=== PATIENT | male | born 1980 | race Caucasian/White ===

== ENCOUNTER 2017-04-13 09:04 | Emergency (ER) | payer MEDICAID | END 2017-04-13 09:50 | disposition left against medical advice (07) | LOC: JP.ED 09:04 | DX: Z53.21 Procedure and treatment not carried out due to patient leaving prior to being seen by health care provider (principal) ==

== ENCOUNTER 2018-04-21 14:29 | Emergency (ER) | payer SELFPAY ==
--- NOTE | 2018-04-21 15:30 | EDM.PDOC ---
ED HPI GENERAL MEDICAL PROBLEM - General Chief Complaint: Cardiovascular Problem Stated Complaint: HEART ISSUES Time Seen by Provider: 04/21/18 15:00 Source of Information: Reports: Patient History Limitations: Reports: No Limitations - History of Present Illness INITIAL COMMENTS - FREE TEXT/NARRATIVE: 37-year-old male who is been feeling occasional ectopic beats over the last several days, and it finally made him nervous enough to come in and get it checked. Causes him to be anxious but it's not causing pain, he is not short of breath or ill. They never last more than a second or 2. He is otherwise healthy. Onset: Unknown/Unsure Worsens with: Reports: None Associated Symptoms: Reports: No Other Symptoms - Related Data Allergies Allergy/AdvReac Type Severity Reaction Status Date / Time Penicillins Allergy Swelling Verified 04/21/18 14:51 Home Meds: Home Meds NK [No Known Home Meds] 01/29/18 [History] Past Medical History HEENT History: Reports: Impaired Vision Genitourinary History: Reports: Other (See Below) Other Genitourinary History: prostatitis 2 weeks ago - Infectious Disease History Infectious Disease History: Reports: Chicken Pox Social & Family History - Tobacco Use Smoking Status *Q: Heavy Tobacco Smoker Years of Tobacco use: 17 Packs/Tins Daily: 1 - Caffeine Use Caffeine Use: Reports: Coffee - Recreational Drug Use Recreational Drug Use: No ED ROS GENERAL - Review of Systems Review Of Systems: See Below Constitutional: Denies: Fever, Chills HEENT: Reports: No Symptoms Respiratory: Denies: Shortness of Breath Cardiovascular: Reports: Palpitations. Denies: Chest Pain Endocrine: Denies: Fatigue GI/Abdominal: Denies: Abdominal Pain, Nausea, Vomiting : Reports: No Symptoms Musculoskeletal: Reports: No Symptoms Skin: Reports: No Symptoms ED EXAM, GENERAL - Physical Exam Exam: See Below Exam Limited By: No Limitations General Appearance: Alert, No Apparent Distress Respiratory/Chest: No Respiratory Distress, Lungs Clear Cardiovascular: Regular Rate, Rhythm. No: Extra Beats GI/Abdominal: Non-Tender Extremities: No: Pedal Edema Neurological: Alert, Oriented Psychiatric: Normal Affect, Normal Mood Course - Vital Signs Last Recorded V/S: Last Vital Signs Temp 97.8 F 04/21/18 14:48 Pulse 102 H 04/21/18 14:48 Resp 18 04/21/18 14:48 BP 122/80 02/27/19 14:48 Pulse Ox 99 04/21/18 14:48 - Re-Assessments/Exams Free Text/Narrative Re-Assessment/Exam: 04/21/18 15:28 Patient was placed on a patient monitor and observed for over an hour. He was a normal sinus rhythm throughout and developed no symptoms. I explained to the patient that it's likely PACs or PVCs he is experiencing, and can be diagnosed with a Holter monitor if so desired. He is going to consider it but does not want to be set up with one at this time. Departure - Departure Time of Disposition: 15:34 Disposition: Home, Self-Care 01 Condition: Good Clinical Impression: Palpitations Instructions: Palpitations, [id number] Referrals: PCP,None [Primary Care Provider] - Forms: ED Department Discharge Care Plan Goals: Continue activity as tolerated, consider rechecking if symptoms are worsening or becoming more concerning and you can be set up with a Holter monitor for a few days.
== END 2018-04-21 15:34 | disposition home or self-care (01) ==
LOC: JP.ED 14:29
DX: R00.2 Palpitations (principal); F17.210 Nicotine dependence, cigarettes, uncomplicated; Z88.0 Allergy status to penicillin
CPT/HCPCS: 99284

== ENCOUNTER 2018-12-18 12:47 | Emergency (ER) | payer OTHER ==
--- NOTE | 2018-12-18 13:35 | EDM.PDOC ---
ED HPI GENERAL MEDICAL PROBLEM - General Chief Complaint: Abdominal Pain Stated Complaint: MID BACK PAIN, LOWER RT ABD PAIN Time Seen by Provider: 12/18/18 13:35 Source of Information: Reports: Patient - History of Present Illness INITIAL COMMENTS - FREE TEXT/NARRATIVE: Alert pleasant 38 yo male present to ER for 2-3 days of generalized abdominal discomfort. Patient has had similar pain in the past which he thought was heartburn. Patient has been unable to take his usual Zantac due to recall of the medication. Patient has not been worked up for the pain he describes as heart burn. Abdominal pain has been intermittent and generalized until today. Patient had breakfast which caused a significant worsening of pain across upper abdomen which radiates into right anterior chest and right flank. Patient had loose stools this am. Patient drove himself to ER for evaluation this am. Pain is much improved after arrival and does not need pain medications at time of initial evaluation. Patient denies headache, cough, SOB, sore throat, urinary symptoms or rashes. Right Lower Abdomen Pain Score (Numeric/FACES): 6 - Related Data Allergies Allergy/AdvReac Type Severity Reaction Status Date / Time Penicillins Allergy Swelling Verified 04/21/18 14:51 Home Meds: Home Meds Omeprazole 20 mg PO BID 30 Days #60 tablet. 12/18/18 [Rx] Past Medical History - Past Health History Medical/Surgical History: Denies Medical/Surgical History HEENT History: Reports: Impaired Vision Genitourinary History: Reports: Other (See Below) Other Genitourinary History: prostatitis 2 weeks ago - Infectious Disease History Infectious Disease History: Reports: Chicken Pox Social & Family History - Tobacco Use Smoking Status *Q: Current Every Day Smoker Years of Tobacco use: 15 Packs/Tins Daily: 1 - Caffeine Use Caffeine Use: Reports: Coffee - Recreational Drug Use Recreational Drug Use: No ED ROS GENERAL - Review of Systems Review Of Systems: ROS reveals no pertinent complaints other than HPI. ED EXAM, GI/ABD - Physical Exam Exam: See Below Exam Limited By: No Limitations General Appearance: Alert, WD/WN, No Apparent Distress Eyes: Bilateral: Normal Appearance, EOMI Ears: Normal External Exam, Normal Canal, Hearing Grossly Normal Nose: Normal Inspection, Normal Mucosa Throat/Mouth: Normal Inspection, Normal Lips, Normal Teeth, Normal Gums, Normal Oropharynx, Normal Voice, No Airway Compromise Head: Atraumatic, Normocephalic Neck: Normal Inspection, Supple, Non-Tender, Full Range of Motion Respiratory/Chest: No Respiratory Distress, Lungs Clear, Normal Breath Sounds, No Accessory Muscle Use Cardiovascular: Normal Peripheral Pulses, Regular Rate, Rhythm, No Edema, No Gallop, No JVD, No Murmur, No Rub GI/Abdominal Exam: Normal Bowel Sounds, Soft, No Organomegaly, No Distention, Pelvis Stable, Distended, Guarding (right upper abdomen with referred pain to RUQ ), Tender (diffuse discomfort across upper abdomen with focal RUQ pain on exam). No: Rigid, Rebound, Abnormal Bowel Sounds Back Exam: Normal Inspection, Full Range of Motion. No: CVA Tenderness (R), CVA Tenderness (L) Extremities: Normal Inspection, Normal Range of Motion, Non-Tender, Normal Capillary Refill, No Pedal Edema Neurological: Alert, Oriented, CN II-XII Intact, Normal Cognition, Normal Gait, Normal Reflexes, No Motor/Sensory Deficits Psychiatric: Normal Affect, Normal Mood Skin Exam: Warm, Dry, Intact, Normal Color, No Rash Course - Vital Signs Last Recorded V/S: Last Vital Signs Temp 36.4 C 12/18/18 13:16 Pulse 82 12/18/18 13:16 Resp 16 12/18/18 13:16 BP 119/74 12/18/18 13:16 Pulse Ox 96 12/18/18 13:16 - Orders/Labs/Meds Orders: Active Orders 24 hr Category Date Time Status Abdomen Ltd [US] Stat Exams 12/18/18 13:45 Taken Labs: Laboratory Tests 12/18/18 12/18/18 12/18/18 Range/Units 13:41 13:55 13:55 WBC 9.4 (4.5-11.0) K/uL RBC 4.87 (4.30-5.90) M/uL Hgb 14.5 (12.0-15.0) g/dL Hct 44.0 (40.0-54.0) % MCV 90 (80-98) fL MCH 30 (27-31) pg MCHC 33 (32-36) % Plt Count 311 (150-400) K/uL Neut % (Auto) 60 (36-66) % Lymph % (Auto) 25 (24-44) % [place] % (Auto) 11 H (2-6) % Eos % (Auto) 4 (2-4) % Baso % (Auto) 1 (0-1) % Sodium 141 (140-148) mmol/L Potassium 3.9 (3.6-5.2) mmol/L Chloride 105 (100-108) mmol/L Carbon Dioxide 27 (21-32) mmol/L Anion Gap 9.3 (5.0-14.0) mmol/L BUN 16 (7-18) mg/dL Creatinine 0.9 (0.8-1.3) mg/dL Est Cr Clr Drug Dosing 101.41 mL/min Estimated GFR (MDRD) > 60 (>60) Glucose 93 (74-106) mg/dL Calcium 8.7 (8.5-10.1) mg/dL Total Bilirubin 0.2 (0.2-1.0) mg/dL Direct Bilirubin 0.08 (0.0-0.2) mg/dL Indirect Bilirubin TNP AST 20 (15-37) U/L ALT 30 (12-78) U/L Alkaline Phosphatase 58 (46-116) U/L Total Protein 7.0 (6.4-8.2) g/dL Albumin 3.9 (3.4-5.0) g/dL Globulin 3.1 (2.3-3.5) g/dL Albumin/Globulin Ratio 1.3 (1.2-2.2) Lipase 122 (73-393) U/L Urine Color Yellow (YELLOW) Urine Appearance Clear (CLEAR) Urine pH 7.0 (5.0-8.0) Ur Specific [place] 1.015 (1.008-1.030) Urine Protein Negative (NEGATIVE) mg/dL Urine Glucose (UA) Negative (NEGATIVE) mg/dL Urine Ketones Negative (NEGATIVE) mg/dL Urine Occult Blood Negative (NEGATIVE) Urine Nitrite Negative (NEGATIVE) Urine Bilirubin Negative (NEGATIVE) Urine Urobilinogen 0.2 (0.2-1.0) EU/dL Ur Leukocyte Esterase Negative (NEGATIVE) Urine RBC Not seen (0-5) Urine WBC Not seen (0-5) Ur Epithelial Cells Not seen Amorphous Sediment Rare Urine Bacteria Not seen Urine Mucus Not seen - Radiology Interpretation Free Text/Narrative:: US RUQ Limited: No obvious gallstones or gallbladder wall thickening noted. Possible nonechogenic galls stones with classic recurrent symptoms. - Re-Assessments/Exams Free Text/Narrative Re-Assessment/Exam: Discussed initial evaluation with blood work, urine and RUQ US. NO IV or pain medications discussed which patient is in agreement. Patient asked to update if recurrent pain or new symptom which would warrant IV pain medications. IF blood work or US not concerning findings that warrant advanced imaging with CT we will discuss need for IV placement and pain medications. 12/18/18 14:18 Lab tests reviewed normal studies. Patient waiting US RUQ Limited. 12/18/18 14:39 Departure - Departure Time of Disposition: 15:01 Disposition: Home, Self-Care 01 Clinical Impression: Recurrent biliary colic - Discharge Information Prescriptions: Omeprazole 20 mg PO BID 30 Days #60 tablet.dr Instructions: Biliary Colic, Adult, Heartburn Referrals: PCP,None [Primary Care Provider] - Forms: ED Department Discharge Additional Instructions: 1. Omeprazole 20mg BID x 1 week then daily x 1 month may need to continued for 6months to 1 year. 2. Avoid spicy, high fat and protein foods to prevent acute worsening symptoms. 3. Call PCP of choice to discuss referral to General Surgeon for discussion regarding recurrent biliary colic. 4. Return to ER if recurrent symptoms do not improve in 24hours or fever occurs with symptoms. - Problem List & Annotations (1) Recurrent biliary colic SNOMED Code(s): 02584420, 88738936 Code(s): K80.50 - CALCULUS OF BILE DUCT W/O CHOLANGITIS OR CHOLECYST W/O OBST Status: Acute Current Visit: Yes - My Orders Last 24 Hours: My Active Orders 12/18/18 13:45 Abdomen Ltd [US] Stat - Assessment/Plan Last 24 Hours: My Active Orders 12/18/18 13:45 Abdomen Ltd [US] Stat
--- NOTE | 2018-12-18 15:17 | CRLUS ---
HISTORY: Right upper quadrant abdominal pain. TECHNIQUE: Limited ultrasound. COMPARISON: No prior. FINDINGS: Pancreatic tail is obscured by bowel gas. No abnormality of the visualized portions of pancreas. An approximately 1.2 cm hyperechoic lesion is present within the right lobe of liver. Assuming the patient does not have a history of primary malignancy, this may reflect a hepatic hemangioma. A three-month followup ultrasound could be performed to confirm stability. No other liver lesion. No intrahepatic or extrahepatic biliary ductal dilatation. The extrahepatic bile duct measures 3 mm which is within normal limits. Gallbladder is normal without sludge, stones, wall thickening or pericholecystic fluid. Sonographic Patel sign is absent. The main portal vein appears patent with appropriate direction flow. No abnormality involving the visualized right kidney. No upper abdominal ascites. IMPRESSION: 1. Normal gallbladder. 2. No biliary ductal dilatation. 3. 1.2 cm hyperechoic lesion within the right hepatic lobe. Assuming the patient does not have a history of a primary malignancy, this may reflect a hepatic hemangioma. A three-month followup ultrasound could be performed to confirm stability. Alternatively, if the patient has prior outside cross-sectional imaging studies, the current study could be compared with those to determine stability. Dictated by Benito Livingston MD @ 12/18/2018 3:15:53 PM Dictated by: Benito Livingston MD @ 12/18/2018 15:15:58 (Electronically Signed)
== END 2018-12-18 15:15 | disposition home or self-care (01) ==
LOC: JP.ED 12:47
DX: K80.50 Calculus of bile duct without cholangitis or cholecystitis without obstruction (principal); F17.210 Nicotine dependence, cigarettes, uncomplicated; Z88.0 Allergy status to penicillin
CPT/HCPCS: 36415; 76705; 80048; 80076; 81001; 83690; 85025; 99283; 99284-25

== ENCOUNTER 2022-03-22 19:08 | Emergency (ER) | payer MEDICAID ==
[2022-03-22] MEDS ORDERED: Diphtheria,Pertussis(Acell),Tetanus Vaccine 0.5 ML Syringe IM ONE (19:23)
== END 2022-03-22 19:56 | disposition home or self-care (01) ==
LOC: JP.ED 19:08
DX: S61.432A Puncture wound without foreign body of left hand, initial encounter (principal); Z23 Encounter for immunization; Z88.0 Allergy status to penicillin; Z72.0 Tobacco use; Z79.899 Other long term (current) drug therapy; W26.8XXA Contact with other sharp object(s), not elsewhere classified, initial encounter
CPT/HCPCS: 90471; 90715; 99281

== ENCOUNTER 2022-04-08 16:48 | Emergency (ER) | payer MEDICAID | END 2022-04-08 17:09 | disposition left against medical advice (07) | LOC: JP.ED 16:48 | DX: Z53.21 Procedure and treatment not carried out due to patient leaving prior to being seen by health care provider (principal) ==

== ENCOUNTER 2022-07-10 12:21 | Emergency (ER) | payer MEDICAID | END 2022-07-10 13:33 | disposition home or self-care (01) | LOC: JP.ED 12:21 | DX: I49.1 Atrial premature depolarization (principal); K21.9 Gastro-esophageal reflux disease without esophagitis; F17.210 Nicotine dependence, cigarettes, uncomplicated; Z79.899 Other long term (current) drug therapy; Z86.16 Personal history of COVID-19; Z88.0 Allergy status to penicillin | CPT/HCPCS: 99284 ==

== ENCOUNTER 2022-10-18 12:28 | Emergency (ER) | payer MEDICAID | END 2022-10-18 14:49 | disposition home or self-care (01) | LOC: JP.ED 12:28 | DX: M54.2 Cervicalgia (principal); R51.9 Headache, unspecified; F17.210 Nicotine dependence, cigarettes, uncomplicated; Z88.0 Allergy status to penicillin; Z86.16 Personal history of COVID-19 | CPT/HCPCS: 99283 ==